=== PATIENT | female | born 1955 | race African-American/Black ===

== ENCOUNTER 2020-11-13 07:50 | Outpatient (CLI) | payer MEDICARE, BC ==
[2020-11-14 04:15] LABS: SARS-CoV-2 PCR by NAA Not Detected (NotDetected)
== END 2020-11-13 07:51 | disposition home or self-care (01) ==
LOC: LABBT 07:50
PROVIDERS: ATTEND Internal Medicine
DX: K21.9 Gastro-esophageal reflux disease without esophagitis (principal); R13.10 Dysphagia, unspecified; R10.13 Epigastric pain; Z20.822 Contact with and (suspected) exposure to COVID-19
CPT/HCPCS: U0003; U0005; 87635

== ENCOUNTER → 2020-11-18 | Day surgery (SDC) | payer MEDICARE, BC | LOC: ENDO/OP 07:43 | PROVIDERS: ATTEND Internal Medicine | DX: K21.9 Gastro-esophageal reflux disease without esophagitis (principal); E11.9 Type 2 diabetes mellitus without complications; E78.00 Pure hypercholesterolemia, unspecified; I10 Essential (primary) hypertension; E07.9 Disorder of thyroid, unspecified; Z79.82 Long term (current) use of aspirin; Z79.84 Long term (current) use of oral hypoglycemic drugs; Z79.899 Other long term (current) drug therapy; Z88.5 Allergy status to narcotic agent | CPT/HCPCS: 91010 ==

== ENCOUNTER 2023-09-21 09:45 | Day surgery (SDC) | payer MEDICARE, BC ==
[2023-09-20 10:57] VITALS: BMI 39.4
[~2023-09-21 09:45] MED LIST: Fluorouracil 100 MG, Enoxaparin 25 MG, EPINEPHrine 0.3 MG in Ophthalmic Irrigation Solu... IRR SCH
[2023-09-21] MEDS ORDERED: PHENYLephrine 2.5% Ophth Soln 15 ml Bottle ONE (10:04)
[2023-09-21] MEDS ORDERED: Cyclopentolate 1% Opth Drop 2 ML BOT ONE (10:04)
[2023-09-21] MEDS ORDERED: PROPOFOL 20 ML ONE (11:04)
[2023-09-21] MEDS ORDERED: Lidocaine 2% PF 5 ML VIAL ONE (11:04)
[2023-09-21] MEDS ORDERED: fentaNYL 50 mcg/mL 1 mL Vial ONE ×2 (11:05→12:10)
[2023-09-21] MEDS ORDERED: Bupivacaine 0.75% 10 ML VIAL ONE (11:30)
[2023-09-21] MEDS ORDERED: Maxitrol 0.1% Opth Oint 3.5 GM TUBE ONE (11:30)
[2023-09-21] MEDS ORDERED: ePHEDrine Sulfate 50 MG/10 ML VIAL ONE ×2 (11:30→11:42)
[2023-09-21] MEDS ORDERED: Lidocaine 4% PF 5 ML AMP ONE (11:30)
[2023-09-21] MEDS ORDERED: Triamcinolone 40 MG/ML VIAL ONE (11:30)
[2023-09-21] MEDS ORDERED: Lidocaine 1% PF 5 ML VIAL ONE (11:30)
[2023-09-21] MEDS ORDERED: CEFAZOLIN 1 GM VIAL ONE (11:30)
[2023-09-21] MEDS ORDERED: Glycopyrrolate 0.2 MG/ML 5 ML SYRINGE ONE (11:30)
== END 2023-09-21 15:08 | disposition home or self-care (01) ==
LOC: SDC 09:45
PROVIDERS: ATTEND Ophthalmology Retina Specialist
PROC: 08T53ZZ Resection of Left Vitreous, Percutaneous Approach (ICD-10-PCS; principal; 2023-09-21)
DX: H33.022 Retinal detachment with multiple breaks, left eye (principal)
CPT/HCPCS: 67113; 82962; C1776; C1814; J3010; 36416; J0171; J0690; J1650; J2001; J2704; J3301; J3490; J9190

== ENCOUNTER 2024-01-11 07:53 | Day surgery (SDC) | payer MEDICARE ==
[2024-01-10 10:48] VITALS: BMI 36.9
[~2024-01-11 07:53] MED LIST changes: +EPINEPHrine 0.3 MG in Ophthalmic Irrigation Solution 500 ML IRR SCH; -Fluorouracil 100 MG, Enoxaparin 25 MG, EPINEPHrine 0.3 MG in Ophthalmic Irrigation Solu... IRR SCH
[2024-01-11] MEDS ORDERED: Cyclopentolate 0.5% Opth Drops 15 ML BOT ONE (08:07)
[2024-01-11] MEDS ORDERED: PHENYLephrine 2.5% Ophth Soln 15 ml Bottle ONE (08:07)
[2024-01-11] MEDS ORDERED: Lidocaine 1% PF 5 ML VIAL ONE (08:25)
[2024-01-11] MEDS ORDERED: Maxitrol 0.1% Opth Oint 3.5 GM TUBE ONE (08:25)
[2024-01-11] MEDS ORDERED: Lidocaine 4% PF 5 ML AMP ONE (08:25)
[2024-01-11] MEDS ORDERED: Triamcinolone 40 MG/ML VIAL ONE (08:25)
[2024-01-11] MEDS ORDERED: Bupivacaine 0.75% 10 ML VIAL ONE (08:25)
[2024-01-11] MEDS ORDERED: PROPOFOL 200 MG/20 ML VIAL ONE (08:25)
[2024-01-11] MEDS ORDERED: CEFAZOLIN 1 GM VIAL ONE (08:25)
== END 2024-01-11 09:45 | disposition home or self-care (01) ==
LOC: SDC 07:53
PROVIDERS: ATTEND Ophthalmology Retina Specialist
PROC: 08T53ZZ Resection of Left Vitreous, Percutaneous Approach (ICD-10-PCS; principal; 2024-01-11)
DX: H43.312 Vitreous membranes and strands, left eye (principal)
CPT/HCPCS: 36416; J0171; J0690; J2704; J3301; J3490